=== PATIENT | female | born 1975 | race Caucasian/White ===

== ENCOUNTER 2017-06-01 18:03 | Emergency (ER) | payer BC ==
[~2017-06-01] VITALS: Ht 170.2 cm; Wt 54.4 kg
[2017-06-01 18:44] VITALS: BP 138/99
--- NOTE | 2017-06-01 21:57 | NUR ---
CALLED X4; NOT IN LOBBY. INFORMED "PT LEFT LONG TIME AGO"
== END 2017-06-01 21:57 | disposition left against medical advice (07) ==
LOC: ER 18:04
DX: Z53.21 Procedure and treatment not carried out due to patient leaving prior to being seen by health care provider (principal)
CPT/HCPCS: A4606; Z7610